=== PATIENT | male | born 1980 ===

== ENCOUNTER 2019-05-02 17:40 | Emergency (ER) | payer OTHER ==
[2019-05-02 17:56] VITALS: BP 138/88
[2019-05-02] MEDS ORDERED: Acetaminophen TAB* 325 MG PO ONE (18:39)
--- NOTE | 2019-05-02 19:45 | ED ---
Upper Extremity Pain - HPI Summary HPI Summary: 39 yo WM p/w left clavicular pain and deformity x few hrs s/p fall onto left shoulder while lunging with a toy sword and landed on his left shoulder, now hurts to move his left shoulder - History of Current Complaint Chief Complaint: UCUpperExtremity Stated Complaint: L SHOULDER INJURY Time Seen by Provider: 05/02/19 18:02 Hx Obtained From: Patient Mechanism Of Injury: Direct Blow Onset/Duration: Started Hours Ago Timing: Constant Severity Initially: Severe Severity Currently: Severe Pain Location: Collar - Allergies/Home Medications Allergies/Adverse Reactions: Allergies Allergy/AdvReac Type Severity Reaction Status Date / Time No Known Allergies Allergy Verified 05/02/19 17:56 Home Medications: Home Medications PARoxetine HCL TAB* [Paxil TAB*] 05/02/19 [History] lamoTRIgine [Lamictal] 100 mg PO 05/02/19 [History] PMH/Surg Hx/FS Hx/Imm Hx Previously Healthy: Yes Endocrine/Hematology History: Denies: Hx Diabetes Cardiovascular History: Denies: Hx Hypertension Infectious Disease History: No Infectious Disease History: Denies: Traveled Outside the [place] in Last 30 Days - Social History Alcohol Use: None Substance Use Type: Reports: None Smoking Status (MU): Light Every Day Tobacco Smoker Review of Systems Constitutional: Negative Eyes: Negative ENT: Negative Cardiovascular: Negative Respiratory: Negative Genitourinary: Negative Positive: Decreased ROM, Other - LEft clavicular pain Skin: Negative Neurological: Negative Psychological: Normal All Other Systems Reviewed And Are Negative: Yes Physical Exam - Summary Physical Exam Summary: Vital Signs Reviewed: Yes Eye Exam: Normal Eyes: Positive: Conjunctiva Clear ENT: Positive: Normal ENT inspection Neck: Positive: Supple Respiratory Exam: Normal Respiratory: Positive: Lungs clear, Normal breath sounds. Negative: Crackles, Rhonchi, Stridor, Wheezing Cardiovascular Exam: Normal Cardiovascular: Positive: RRR Abdomen Description: Positive: Nontender Musculoskeletal Exam: left clavicular deformity, appears higher than right, restricted ROM on left shoulder due to pain Neurological Exam: Nmild lfet numbness on left fingers mortor fx intact, radial pulse 2+ Psychological Exam: Normal Skin Exam: Normal Triage Information Reviewed: Yes Vital Signs On Initial Exam: Initial Vitals Temp Pulse Resp BP Pulse Ox 36.8 C 83 16 138/88 98 05/02/19 17:51 05/02/19 17:51 05/02/19 17:51 05/02/19 17:51 05/02/19 17:51 Diagnostics - Vital Signs Vital Signs Temp Pulse Resp BP Pulse Ox 05/02/19 17:51 36.8 C 83 16 138/88 98 - Laboratory Lab Statement: Any lab studies that have been ordered have been reviewed, and results considered in the medical decision making process. Course/Dx - Course Assessment/Plan: Left clavicular fx - XR shows displaced midshaft clavicular fx , sling, RICE, NSAIDS. Spoke to Dr Flor who stated this is not a surgical emergency as it is not an open fx, if numbness gets worse in left hand- advised pt to go to ER for uregent evaluation but follow up on Sunday for ortho eval - Diagnoses Provider Diagnoses: Clavicle fracture, shaft Discharge - Sign-Out/Discharge Documenting (check all that apply): Patient Departure All imaging exams completed and their final reports reviewed: Yes - Discharge Plan Condition: Stable Disposition: HOME Prescriptions: Naproxen [Naproxen 500 mg tab] 500 mg PO BID 10 Days #20 tablet Patient Education Materials: Clavicle Fracture (ED) Referrals: Selina Flor MD [Medical Doctor] - Additional Instructions: please call Dr Flor's office on Sunday for urgent orthopedics consult - Billing Disposition and Condition Condition: STABLE Disposition: Home
== END 2019-05-02 19:45 | disposition home or self-care (01) ==
LOC: UCEAST 17:40
DX: S42.022A Displaced fracture of shaft of left clavicle, initial encounter for closed fracture (principal); W18.30XA Fall on same level, unspecified, initial encounter; Y92.9 Unspecified place or not applicable; F17.210 Nicotine dependence, cigarettes, uncomplicated
CPT/HCPCS: 99202; A9270-GY; G0463